=== PATIENT | male | born 2000 | race African-American/Black ===

== ENCOUNTER 2022-11-29 02:00 | Emergency (ER) | payer OTHER ==
[~2022-11-29] VITALS: Ht 185.4 cm; Wt 105.0 kg
[2022-11-29 02:08] VITALS: TEMP 98.7; O2SAT 95
[2022-11-29] MEDS ORDERED: LEVETIRACETAM 500MG PREMIX 100 ML IV ONE (02:45)
[2022-11-29] MEDS ORDERED: SODIUM CHLORIDE 0.9% 1,000 ML IV ONE (02:45)
[2022-11-29 05:09] LABS: BASOPHILS % 0.2 % (0.0-2.0); HEMATOCRIT. 39.8 % (42.0-52.0); HEMOGLOBIN. 13.6 g/dL (14.0-18.0); LYMPHOCYTES % 7.9 % (20.0-50.0); MEAN CORPUSCULAR HEMOGLOBIN 32.6 pg (28.0-32.0); MEAN CORPUSCULAR VOLUME 95.1 fL (80.0-94.0); MEAN PLATELET VOLUME 8.6 fl (7.4-10.4); MONOCYTES % 8.5 % (2.0-8.0); NEUTROPHILS % 83.4 % (40.0-76.0); PLATELET 224 x1000/uL (130-400); RED BLOOD CELL COUNT 4.18 mill/uL (4.7-6.1); RED CELL DISTRIBUTION WIDTH 13.3 % (11.6-14.6)
[2022-11-29 05:18] LABS: CHLORIDE 108 mEq/L (98-107)
[2022-11-29 05:25] LABS: ETHANOL BLOOD < 10 mg/dL (-10)
[2022-11-29 06:54] LABS: *AMPHETAMINES SCREEN URINE NEGATIVE (NEGATIVE); *BARBITURATES SCREEN URINE NEGATIVE (NEGATIVE); *BENZODIAZEPINES SCREEN URINE PRESUMTIVE POSITIVE (NEGATIVE); *COCAINE SCREEN URINE NEGATIVE (NEGATIVE); CANNABINOID URINE SCREEN PRESUMTIVE POSITIVE (NEGATIVE); METHADONE URINE SCREEN NEGATIVE (NEGATIVE); OPIATES URINE SCREEN NEGATIVE (NEGATIVE); PHENCYCLIDINE URINE SCREEN NEGATIVE (NEGATIVE)
[2022-11-29] MEDS ORDERED: MAGNESIUM/ALUMINUM HYDROXIDE/SIMETHICONE 30ML UDC PO PRN (10:30)
[2022-11-29] MEDS ORDERED: ONDANSETRON HCL 4MG/2ML INJ IV PRN (10:30)
[2022-11-29] MEDS ORDERED: CLONIDINE 0.1MG TABLET PO PRN (10:30)
[2022-11-29] MEDS ORDERED: ENOXAPARIN 40MG/0.4ML SYR SUBCUT SCH (10:30)
[2022-11-29] MEDS ORDERED: DOCUSATE SODIUM 100MG CAPSULE PO PRN (10:30)
[2022-11-29] MEDS ORDERED: ACETAMINOPHEN 325MG TABLET PO PRN ×2 (10:30)
[2022-11-29] MEDS ORDERED: IPRATROPIUM/ALBUTEROL 0.5-3(2.5)MG/3ML NEB HHN PRN (10:30)
[2022-11-29] MEDS ORDERED: GUAIFENESIN 200MG/10ML SUGAR FREE UDC PO PRN (10:30)
[2022-11-29] MEDS ORDERED: ENOXAPARIN 30MG/0.3ML SYR SUBCUT SCH (10:30)
[2022-11-29] MEDS ORDERED: FAMOTIDINE 20MG/2ML VIAL IV SCH (10:45)
[2022-11-29] MEDS ORDERED: POTASSIUM CHLORIDE 20MEQ TABLET SR PO NR (10:45)
[2022-11-29] MEDS ORDERED: LEVETIRACETAM 500 MG in SODIUM CHLORIDE 0.9% 100 ML IV SCH (10:45)
[2022-11-29] MEDS ORDERED: LACTATED RINGERS 1,000 ML IV SCH (10:45)
[2022-11-29] MEDS ORDERED: LEVETIRACETAM 500MG PREMIX 100 ML IV SCH (10:48)
[2022-11-29 11:11] LABS: PHOSPHORUS 1.1 mg/dL (2.5-4.9)
[2022-11-29 12:15] VITALS: BP 115/71; PULSE 69; RESP 20
[2022-11-30 10:43] LABS: CLARITY URINE TURBID (CLEAR); COLOR URINE YELLOW (YELLOW); KETONES URINE 2+ (NEGATIVE); LEUKOCYTE ESTERASE URINE NEGATIVE (NEGATIVE); NITRITE URINE NEGATIVE (NEGATIVE); OCCULT BLOOD URINE NEGATIVE (NEGATIVE); PH URINE 5.5 (4.5-8.0); PROTEIN URINE NEGATIVE (NEGATIVE); SPECIFIC GRAVITY URINE 1.008 (1.005-1.030); UROBILINOGEN URINE 0.2 E.U./dL (0.2-1.0)
== END 2022-11-29 12:42 | disposition home or self-care (01) ==
LOC: ER 02:51 → EDBEDREQTM 05:23 → EDBEDREQ 05:23 → ER 12:42 → CANBEDREQ 11-30 20:04
DX: R56.9 Unspecified convulsions (principal); R41.82 Altered mental status, unspecified; R77.8 Other specified abnormalities of plasma proteins
CPT/HCPCS: 80053; 80305; 81003; 80307; 80329; 80320; 83735; 84100; 85025; 87040; 84484; 36415; 84145; 71045; 70450; 93005; 96365; 96366; 96375; 99285; J1953; J1650; J3490; J7030; Z7610; G0480